=== PATIENT | male | born 1995 | race Caucasian/White ===

== ENCOUNTER 2024-08-10 19:10 | Inpatient (IN) | payer BC ==
[~2024-08-10] VITALS: Ht 170.2 cm; Wt 93.2 kg
[~2024-08-10 19:10] MED LIST: MUPI22OI TP; SULF-113 PO
[2024-08-10 19:14] VITALS: BP_SYST 192; PULSE 108; RESP 16; TEMP 97.9; O2SAT 99
[2024-08-10 20:04] LABS: BASOPHILS % (AUTO) 0.4 % (0.0-2.0); EOSINOPHILS # (AUTO) 0.1 K/uL (0.0-0.4); EOSINOPHILS % (AUTO) 0.8 % (0.0-4.0); HEMATOCRIT 46.5 % (36-54); HEMOGLOBIN 16.4 g/dL (14.0-18.0); LYMPHOCYTES % (AUTO) 17.7 % (20.5-51.5); MEAN CORPUSCULAR HEMOGLOBIN 31 pg (27-31); MEAN CORPUSCULAR HGB CONC 35 % (32-36); MEAN CORPUSCULAR VOLUME 87 fL (79.0-98.0); MONOCYTES # (AUTO) 0.7 K/uL (0.0-1.0); MONOCYTES % (AUTO) 6.1 % (1.7-9.3); NEUTROPHILS # (AUTO) 8.3 K/uL (1.8-7.7); PLATELET COUNT (AUTO) 365 K/uL (130-430); RED BLOOD CELL COUNT(AUTO) 5.32 MIL/uL (4.2-6.2); RED CELL DISTRIBUTION WIDTH 12.8 % (9.0-15.0)
[2024-08-10] MEDS: LABETALOL HCL 20 MG/4 ML CARTRIDGE IVP ONE ×2 (20:06→21:36)
[2024-08-10] MEDS: ENALAPRILAT DIHYDRATE 1.25 MG/ML VIAL IVP ONE (20:16)
[2024-08-10 20:17] LABS: ANION GAP 9 (5-15); CALCIUM 9.3 mg/dL (8.4-11.0); CARBON DIOXIDE 27 mmol/L (23-29); CHLORIDE 105 mmol/L (98-107); GLUCOSE 88 mg/dL (74-106); POTASSIUM 3.8 mmol/L (3.5-5.1); SODIUM SERUM 141 mmol/L (136-145); UREA NITROGEN, BLOOD 14 mg/dL (8-21)
[2024-08-10 20:18] LABS: ALANINE AMINOTRANSFERASE 25 U/L (12-78); ALBUMIN 4.3 g/dL (3.4-4.8); ASPARTATE AMINOTRANSFERASE 20 U/L (10-37); CREATININE 1.33 mg/dL (0.55-1.30); GFR AFRICAN AMERICAN 81 mL/min (>90); TOTAL PROTEIN, SERUM 8.2 g/dL (6.4-8.3)
[2024-08-10 20:19] LABS: GFR NON AFRICAN-AMERICAN 67 mL/min (>90)
[2024-08-10 20:32] LABS: BILIRUBIN,DIRECT 0.2 mg/dL (0.0-0.3)
[2024-08-10] MEDS ORDERED: MORPHINE 4 MG INJ. 4 MG/ML VIAL ONE (20:47)
[2024-08-10] MEDS ORDERED: NITROGLYCERIN 1 INCH (GM) OINT. ONE (20:48)
[2024-08-10] MEDS: NITROGLYCERIN 1 INCH (GM) OINT. TP ONE (20:49)
[2024-08-10] MEDS: MORPHINE 4 MG INJ. 4 MG/ML VIAL IVP ONE (20:55)
[2024-08-10] MEDS: ENOXAPARIN SODIUM 100 MG/ML SYRINGE SUBCUT ONE (21:26)
[2024-08-10 22:17] LABS: BARBITURATE, URINE NEGATIVE (NEG <=200); BENZODIAZEPINE, URINE NEGATIVE (NEG <=150); CANNABINOID, URINE NEGATIVE (NEG <=50); COCAINE, URINE NEGATIVE (NEG <=150); METHAMPHETAMINES SCREEN,URINE NEGATIVE (NEG <=500); OPIATE, URINE NEGATIVE (NEG <=100); PHENCYCLIDINE SCREEN,URINE NEGATIVE (NEG <=25); URINE AMPHETAMINE NEGATIVE (NEG <=500); URINE METHADONE NEGATIVE (NEG <=200); URINE OXYCODONE SCREEN NEGATIVE (NEG <=100)
[2024-08-10 22:18] LABS: UR TRICYCLIC ANTIDEPRESSANTS NEGATIVE (NEG <=300)
[2024-08-10] MEDS ORDERED: MAGNESIUM SULFATE 50 ML IV PRN (23:15)
[2024-08-10] MEDS ORDERED: ACETAMINOPHEN 325 MG TABLET PO PRN (23:15)
[2024-08-10] MEDS ORDERED: DOCUSATE SODIUM 100 MG CAPSULE PO PRN (23:15)
[2024-08-10] MEDS: LOSARTAN POTASSIUM 25 MG TABLET PO SCH (23:15)
[2024-08-10] MEDS ORDERED: NITROGLYCERIN 0.4 MG TAB.SUBL SL PRN (23:15)
[2024-08-10] MEDS ORDERED: ZOLPIDEM TARTRATE 5 MG TABLET PO PRN (23:15)
[2024-08-10] MEDS ORDERED: ONDANSETRON HCL 4 MG/2 ML VIAL IVP PRN (23:15)
[2024-08-10] MEDS ORDERED: MORPHINE 2 MG/ML INJ. SYRINGE IVP PRN ×2 (23:15)
[2024-08-10] MEDS ORDERED: MUPIROCIN 2% TOPICAL OINTMENT 22 GM NS PRN (23:15)
[2024-08-10] MEDS ORDERED: POTASSIUM CHLORIDE 20 MEQ TABLET.ER PO PRN (23:15)
[2024-08-11] VITALS (7 sets, daily range): BP systolic 124–150; PULSE 84–90; RESP 18–19; TEMP 97.4–98.8; O2SAT 96–99
[2024-08-11] MEDS: METOPROLOL TARTRATE 25 MG TABLET PO SCH (00:06)
[2024-08-11] MEDS: NACL 0.9% 1,000 ML IV SCH (00:10)
[2024-08-11 07:07] LABS: BASOPHILS % (AUTO) 0.3 % (0.0-2.0); EOSINOPHILS % (AUTO) 0.3 % (0.0-4.0); HEMATOCRIT 42.5 % (36-54); HEMOGLOBIN 14.7 g/dL (14.0-18.0); LYMPHOCYTES # (AUTO) 1.7 K/uL (1.0-5.5); LYMPHOCYTES % (AUTO) 17.8 % (20.5-51.5); MEAN CORPUSCULAR HEMOGLOBIN 31 pg (27-31); MEAN CORPUSCULAR HGB CONC 35 % (32-36); MEAN CORPUSCULAR VOLUME 89 fL (79.0-98.0); MONOCYTES # (AUTO) 0.6 K/uL (0.0-1.0); NEUTROPHILS # (AUTO) 7.2 K/uL (1.8-7.7); NEUTROPHILS % (AUTO) 75.6 % (40.0-70.0); PLATELET COUNT (AUTO) 334 K/uL (130-430); RED BLOOD CELL COUNT(AUTO) 4.77 MIL/uL (4.2-6.2); RED CELL DISTRIBUTION WIDTH 12.9 % (9.0-15.0); WHITE BLOOD COUNT (AUTO) 9.6 K/uL (4.8-10.8)
[2024-08-11 07:28] LABS: CREATININE 1.16 mg/dL (0.55-1.30); POTASSIUM 4.5 mmol/L (3.5-5.1)
[2024-08-11] MEDS: ENOXAPARIN SODIUM 100 MG/ML SYRINGE SUBCUT SCH (08:40)
[2024-08-11 09:01] LABS: CHOLESTEROL 220 mg/dL (<200); HDL CHOLESTEROL 40 mg/dL (>45); TRIGLYCERIDES 90 mg/dL (30-150)
[2024-08-11] MEDS: ASPIRIN 81 MG TAB.CHEW PO SCH (09:40)
[2024-08-11] MEDS ORDERED: iohexoL 350 mgI/mL, 100 ML INFUS..BTL IV ONE (09:54)
[2024-08-11] MEDS ORDERED: *LOVENOX 1MG/KG Q12H/PHARMACY XX PRN (23:15)
[2024-08-12 01:21] VITALS: BP_SYST 146; PULSE 104; RESP 18; TEMP 98.1
[2024-08-12 06:21] LABS: BASOPHILS % (AUTO) 0.4 % (0.0-2.0); EOSINOPHILS # (AUTO) 0.2 K/uL (0.0-0.4); EOSINOPHILS % (AUTO) 2.1 % (0.0-4.0); HEMATOCRIT 41.7 % (36-54); HEMOGLOBIN 14.6 g/dL (14.0-18.0); LYMPHOCYTES # (AUTO) 2.3 K/uL (1.0-5.5); LYMPHOCYTES % (AUTO) 23.3 % (20.5-51.5); MEAN CORPUSCULAR HEMOGLOBIN 31 pg (27-31); MEAN CORPUSCULAR HGB CONC 35 % (32-36); MEAN CORPUSCULAR VOLUME 88 fL (79.0-98.0); MONOCYTES # (AUTO) 0.9 K/uL (0.0-1.0); MONOCYTES % (AUTO) 9.6 % (1.7-9.3); NEUTROPHILS # (AUTO) 6.3 K/uL (1.8-7.7); NEUTROPHILS % (AUTO) 64.6 % (40.0-70.0); PLATELET COUNT (AUTO) 327 K/uL (130-430); RED BLOOD CELL COUNT(AUTO) 4.72 MIL/uL (4.2-6.2); RED CELL DISTRIBUTION WIDTH 12.9 % (9.0-15.0); WHITE BLOOD COUNT (AUTO) 9.8 K/uL (4.8-10.8)
[2024-08-12 06:47] LABS: CALCIUM 8.7 mg/dL (8.4-11.0); CREATININE 1.15 mg/dL (0.55-1.30); POTASSIUM 3.9 mmol/L (3.5-5.1)
[2024-08-12 08:06] VITALS: O2SAT 100
[2024-08-12 08:23] VITALS: BP_SYST 154; PULSE 84; RESP 14; TEMP 98.4; O2SAT 100
[2024-08-12] MEDS: ATORVASTATIN 20 MG TABLET PO SCH (09:00)
[2024-08-12 16:00] VITALS: BP_SYST 155; PULSE 84; RESP 14; TEMP 97.4; O2SAT 98
[2024-08-12 19:45] VITALS: O2SAT 97
[2024-08-12 20:00] VITALS: BP_SYST 167; PULSE 97; RESP 15; TEMP 97.8; O2SAT 97
[2024-08-13 03:00] VITALS: BP_SYST 128; PULSE 75; RESP 14; TEMP 97.9; O2SAT 98
[2024-08-13 06:26] LABS: BASOPHILS # (AUTO) 0.1 K/uL (0.0-0.2); BASOPHILS % (AUTO) 0.6 % (0.0-2.0); EOSINOPHILS # (AUTO) 0.5 K/uL (0.0-0.4); HEMATOCRIT 43.1 % (36-54); HEMOGLOBIN 14.9 g/dL (14.0-18.0); LYMPHOCYTES # (AUTO) 2.3 K/uL (1.0-5.5); LYMPHOCYTES % (AUTO) 25.3 % (20.5-51.5); MEAN CORPUSCULAR HEMOGLOBIN 31 pg (27-31); MEAN CORPUSCULAR HGB CONC 35 % (32-36); MEAN CORPUSCULAR VOLUME 88 fL (79.0-98.0); MONOCYTES # (AUTO) 0.8 K/uL (0.0-1.0); MONOCYTES % (AUTO) 8.8 % (1.7-9.3); NEUTROPHILS # (AUTO) 5.4 K/uL (1.8-7.7); NEUTROPHILS % (AUTO) 60.3 % (40.0-70.0); PLATELET COUNT (AUTO) 321 K/uL (130-430); RED BLOOD CELL COUNT(AUTO) 4.87 MIL/uL (4.2-6.2); RED CELL DISTRIBUTION WIDTH 12.7 % (9.0-15.0)
[2024-08-13 06:43] LABS: CALCIUM 8.9 mg/dL (8.4-11.0); CREATININE 1.04 mg/dL (0.55-1.30); POTASSIUM 3.8 mmol/L (3.5-5.1)
[2024-08-13 08:00] VITALS: BP_SYST 148; PULSE 80; RESP 16; TEMP 98.4; O2SAT 96
[2024-08-13 12:00] VITALS: BP_SYST 140; PULSE 73; RESP 16; TEMP 98.8; O2SAT 98
[2024-08-13] MEDS ORDERED: ASPI-1155 PO (16:14)
[2024-08-13] MEDS ORDERED: METO-442 PO (16:14)
[2024-08-13] MEDS ORDERED: LOSA-413 PO (16:14)
[2024-08-13] MEDS ORDERED: LIP80 PO (16:14)
[2024-08-13] MEDS: LORazepam 2 MG/ML VIAL IVP PRN (16:24)
[2024-08-13 16:28] VITALS: BP_SYST 151; PULSE 77; RESP 18; TEMP 98.3; O2SAT 98
[2024-08-13] MEDS: cloNIDine HCL 0.2 MG TABLET PO PRN (19:34)
[2024-08-13] MEDS ORDERED: LOSARTAN POTASSIUM 50 MG TABLET (COZAAR) PO SCH (21:00)
== END 2024-08-13 19:45 | disposition short-term general hospital (02) | DRG 281 ==
LOC: SED 19:10 → STU 23:04
PROVIDERS: ADMIT General Practice; ATTEND General Practice
DX: I16.1 Hypertensive emergency (principal); N17.9 Acute kidney failure, unspecified; I21.4 Non-ST elevation (NSTEMI) myocardial infarction; R65.10 Systemic inflammatory response syndrome (SIRS) of non-infectious origin without acute organ dysfunction; I10 Essential (primary) hypertension; E66.9 Obesity, unspecified; E78.5 Hyperlipidemia, unspecified; Z82.49 Family history of ischemic heart disease and other diseases of the circulatory system; Z79.899 Other long term (current) drug therapy; Z68.32 Body mass index [BMI] 32.0-32.9, adult
CPT/HCPCS: 36415; 71045; 71275; 80048; 80061; 80076; 80307; 83037; 83735; 83880; 84443; 84484; 85025; 93306; 99285; G0378; J1650; J2060; J2270; J7030; Q9967